=== PATIENT | male | born 1955 | race Caucasian/White ===

== ENCOUNTER 2016-12-09 19:56 | Emergency (ER) | payer SELFPAY ==
[~2016-12-09] VITALS: Ht 172.7 cm; Wt 71.8 kg
[2016-12-09 20:33] LABS: HEMATOCRIT 39.2 % (39.0-50.0); HEMOGLOBIN 13.8 g/dl (14.0-18.0); IMMATURE GRANULOCYTES 0.4 % (0.0-1.0); MEAN CELL VOLUME 96.6 fL CALC (80.0-100.0); MEAN CORPUSCULAR HGB CONC 35.2 g/L CALC (32.0-36.0); NEUT# 2.47 thou/uL (1.82-7.42); RED BLOOD COUNT 4.06 mill/uL (4.70-6.10); RED CELL DISTRI WIDTH 11.8 % (11.5-15.5)
[2016-12-09 20:41] LABS: ALBUMIN 4.8 g/dL (3.2-5.0); ALKALINE PHOSPHATASE 90 u/l (38-126); ANION GAP 20 (6-22 (CALC)); BILIRUBIN, TOTAL 0.5 mg/dL (0.0-1.4); BUN 4 mg/dL (8-23); BUN/CREATININE RATIO 6 (12-20 (CALC)); CALCIUM 9.5 mg/dL (8.4-10.2); CARBON DIOXIDE 24 mmol/l (22-30); CHLORIDE 101 mmol/l (95-108); CREATININE 0.6 mg/dL (0.7-1.3); GFR > 60 ML/MIN (>=60 (CALC)); GFR FOR AFR.AMER. > 60 ML/MIN (>=60 (CALC)); GLUCOSE 93 mg/dL (82-115); POTASSIUM 4.6 mmol/l (3.5-5.1); SGOT/AST 225 u/l (19-48); SGPT/ALT 140 u/l (11-66); SODIUM 141 mmol/l (137-146); TOTAL PROTEIN 7.7 g/dL (6.3-8.2)
[2016-12-09 20:51] LABS: ETHYL ALCOHOL 396 mg/dl (0-30)
[2016-12-09 21:20] LABS: URINE BILIRUBIN - DIPSTICK NEGATIVE (NEGATIVE); URINE BLOOD DIPSTICK TRACE-LYSED (NEGATIVE); URINE CLARITY CLEAR; URINE COLOR YELLOW; URINE GLUCOSE - DIPSTICK NEGATIVE (NEGATIVE); URINE KETONE NEGATIVE (NEGATIVE); URINE LEUK ESTERASE NEGATIVE (NEGATIVE); URINE NITRITE - DIPSTICK NEGATIVE (Negative); URINE PH 5.5 (4.5-8.0); URINE PROTEIN - DIPSTICK NEGATIVE (NEG-TRACE); URINE SPECIFIC GRAVITY <=1.005; URINE UROBILINOGEN - DIPSTICK 0.2 E.U./dL (0.2)
[2016-12-09 21:24] LABS: BARBITURATES NEGATIVE (NEGATIVE); COCAINE NEGATIVE (NEGATIVE); METHADONE NEGATIVE (NEGATIVE); OXCYCODONE NEGATIVE (NEGATIVE); TETRAHYDROCANNABIONOL NEGATIVE (NEGATIVE); TRICYLIC ANTIDEPRESSANTS NEGATIVE (NEGATIVE)
[2016-12-10 00:56] VITALS: BP 105/64
[2016-12-11] MEDS ORDERED: LIBRIUM25 M1 PO (11:26)
== END 2016-12-10 00:58 | DRG 897 ==
LOC: ED 19:56
PROVIDERS: Emergency Medicine
DX: F10.129 Alcohol abuse with intoxication, unspecified (principal)

== ENCOUNTER 2016-12-10 13:33 | Observation (INO) | payer SELFPAY ==
[~2016-12-10] VITALS: Ht 172.7 cm; Wt 63.0 kg
--- NOTE | 2016-12-10 13:41 | NUR ---
PATIENT TO ROOM VIA EMS
--- NOTE | 2016-12-10 13:59 | NUR ---
PT SEEN SHAKY, PROVIDED ATIVAN ORDERED. PT IS HESITANT TO ANSWER, BUT IS ALERT AND ORIENTED X 3. NO FURTHER SEIZURE ACTIVITY NOTED.
[2016-12-10 14:08] LABS: HEMATOCRIT 36.4 % (39.0-50.0); HEMOGLOBIN 12.7 g/dl (14.0-18.0); IMMATURE GRANULOCYTES 0.8 % (0.0-1.0); MEAN CELL VOLUME 98.4 fL CALC (80.0-100.0); MEAN CORPUSCULAR HGB 34.3 pG CALC (26.0-32.0); MEAN CORPUSCULAR HGB CONC 34.9 g/L CALC (32.0-36.0); NEUT# 6.19 thou/uL (1.82-7.42); RED BLOOD COUNT 3.7 mill/uL (4.70-6.10); RED CELL DISTRI WIDTH 11.7 % (11.5-15.5)
[2016-12-10 14:21] LABS: ALBUMIN 4.7 g/dL (3.2-5.0); ALKALINE PHOSPHATASE 89 u/l (38-126); ANION GAP 25 (6-22 (CALC)); BILIRUBIN, TOTAL 0.8 mg/dL (0.0-1.4); BUN 5 mg/dL (8-23); BUN/CREATININE RATIO 7 (12-20 (CALC)); CALCIUM 9.3 mg/dL (8.4-10.2); CARBON DIOXIDE 16 mmol/l (22-30); CHLORIDE 100 mmol/l (95-108); CREATININE 0.7 mg/dL (0.7-1.3); ETHYL ALCOHOL 0 mg/dl (0-30); GFR > 60 ML/MIN (>=60 (CALC)); GFR FOR AFR.AMER. > 60 ML/MIN (>=60 (CALC)); GLUCOSE 117 mg/dL (82-115); SGOT/AST 166 u/l (19-48); SGPT/ALT 115 u/l (11-66); SODIUM 137 mmol/l (137-146); TOTAL PROTEIN 7.4 g/dL (6.3-8.2)
[2016-12-10 14:34] LABS: BARBITURATES NEGATIVE (NEGATIVE); COCAINE NEGATIVE (NEGATIVE); METHADONE NEGATIVE (NEGATIVE); OXCYCODONE NEGATIVE (NEGATIVE); TETRAHYDROCANNABIONOL NEGATIVE (NEGATIVE); TRICYLIC ANTIDEPRESSANTS NEGATIVE (NEGATIVE); URINE BILIRUBIN - DIPSTICK NEGATIVE (NEGATIVE); URINE BLOOD DIPSTICK MODERATE (NEGATIVE); URINE CLARITY CLEAR; URINE COLOR YELLOW; URINE GLUCOSE - DIPSTICK NEGATIVE (NEGATIVE); URINE KETONE 15 mg/dL (NEGATIVE); URINE LEUK ESTERASE NEGATIVE (NEGATIVE); URINE NITRITE - DIPSTICK NEGATIVE (Negative); URINE PH 5.5 (4.5-8.0); URINE PROTEIN - DIPSTICK 100 mg/dL (NEG-TRACE); URINE SPECIFIC GRAVITY >=1.030; URINE UROBILINOGEN - DIPSTICK 0.2 E.U./dL (0.2)
[2016-12-10 14:39] LABS: MYOGLOBIN 539 ng/mL (0 - 121)
[2016-12-10 14:47] LABS: URINE BACTERIA RARE hpf; URINE HYALINE CAST FEW lpf (NONE-RARE); URINE MUCUS FEW hpf (NONE-FEW); URINE SQUAMOUS EPITHELIAL CELL FEW EPI/hpf (0-FEW); URINE WBC 0-2 WBC/hpf (0-5)
--- NOTE | 2016-12-10 16:42 | NUR ---
PT AWARE OF PENDING ADMISSION, MOTHER HAS BEEN IN AND OUT OF ROOM DURING THE AFTERNOON.
--- NOTE | 2016-12-10 18:31 | NUR ---
PT PROVIDED MEAL TRAY, IS AWARE OF PENDING ADMISSION. BANANA BAG NOW RUNNING, PT PROVIDED WITH TYLENOL 650 MG FOR 99.7 FEVER AND ALSO LIBRIUM 25 MG FOR SHAKINESS.
--- NOTE | 2016-12-10 19:17 | NUR ---
TRIED TO CALL REPORT BUT NURSE IS BUSY AND WILL CALL BACK. PT IS ALERT AND ORIENTED. DENIES HALLUCINATIONS/HEADACHE. ONLY C/O TREMORS...FINE AT PRESENT
--- NOTE | 2016-12-10 19:24 | NUR ---
REPORT TO JUNIOR. MOTHER AT BEDSIDE
[2016-12-10 19:35] VITALS: BP 146/81
--- NOTE | 2016-12-10 19:35 | NUR ---
RECEIVED FROM ER VIA STRETCHER ACCOMPANIED BY ER NURSE. OUT OF STRETCHER TO BED WITH UNSTEADY GAIT. A/O X3, DENIES PAIN OR DISCOMFORT. BANANA BAG INFUSING TO LFA WITH NO COMPLICATIONS. BED ALARM IN PLACE, RAILS PADED. PO FLUIDS IN REACH. WILL CONTINUE TO MONITOR.
--- NOTE | 2016-12-10 19:35 | NUR ---
TO FLOOR WITHOUT INCIDENT.
--- NOTE | 2016-12-10 21:56 | NUR ---
RESTING ON RIGHT SIDE WITH EYES CLOSED, RESPIRATIONS EVEN AND UNLABORED.
--- NOTE | 2016-12-11 | NUR ---
MEDICATED WITH LIBRUIUM AT THIS TIME. TREMORS NOTICED TO HANDS. IV FLUIDS INFUSING TO LFA WITH NO PROBLEMS. VOICES NO CONERNS.
[2016-12-11 00:20] VITALS: BP 140/88
[2016-12-11 04:00] VITALS: BP 136/80
--- NOTE | 2016-12-11 04:44 | NUR ---
MVI BAG COMPLETE, IV HEPLOCKED. OOB TO BATHROOM WITH STEADIER GAIT THAN ON ADMITION. ENCOURAGED TO USE CALL LIGHT FOR ASSISTANCE TO BATHROOM. PO FLUIDS IN REACH.
--- NOTE | 2016-12-11 07:00 | NUR ---
REPORT RECIEVED FROM KAREN PACHECO; PT SITTING UP IN CHAIR FROM SHOWER; ALIX PAYAN AT BEDSIDE TO APPLY TELE; PT DENIES ANY NEEDS AT THIS TIME; PT ENCOURAGED TO CALL FOR ANY NEEDS; CALL LIGHT WITHIN REACH; WILL CONTINUE TO MONITOR
[2016-12-11 09:21] VITALS: BP 150/80
--- NOTE | 2016-12-11 10:06 | NUR ---
REPORT RECEIVED FROM AG LYON. PT SITTING UPRIGHT IN BED. DENIES PAIN. STATES ANTICIPATION OF DISCHARGE. DISCHARGE PROCESS DISCUSSED. CALL LIGHT REVIEWED AND IN REACH. PT STATES UNDERSTANDING.
[2016-12-11 11:20] VITALS: BP 137/82
[2016-12-11] MEDS ORDERED: LIBRIUM25 M1 PO (11:26)
--- NOTE | 2016-12-11 11:45 | NUR ---
Discharge instructions given. Patient verbalizes understanding of same. Discharged in stable condition via Wheelchair to Home with family. All belongings sent with pt.
== END 2016-12-11 12:22 | disposition home or self-care (01) | DRG 897 ==
LOC: ENPENDDIS → ED 13:33 → ED-I 17:48 → ED 17:49 → MS2 17:50
PROVIDERS: Emergency Medicine; ADMIT Internal Medicine; ATTEND Internal Medicine
DX: F10.239 Alcohol dependence with withdrawal, unspecified (principal); R56.9 Unspecified convulsions; F17.210 Nicotine dependence, cigarettes, uncomplicated
CPT/HCPCS: G0378; J1650; J2060

== ENCOUNTER 2018-04-09 08:16 | Emergency (ER) | payer SELFPAY ==
[~2018-04-09] VITALS: Ht 172.7 cm; Wt 80.0 kg
[~2018-04-09 08:16] MED LIST: LIBRIUM25 M1 PO
[2018-04-09 08:34] VITALS: BP 173/94
[2018-04-09] MEDS ORDERED: CIPROFLOXACN500 MG PO (09:03)
[2018-04-09] MEDS ORDERED: CORTISPORIN OTI10 M2 AU (09:03)
[2018-04-09] MEDS ORDERED: ATIVAN1 MG PO (09:03)
== END 2018-04-09 09:20 | disposition home or self-care (01) | DRG 951 ==
LOC: ED 08:16
DX: Z00.8 Encounter for other general examination (principal); H66.92 Otitis media, unspecified, left ear; F17.200 Nicotine dependence, unspecified, uncomplicated

== ENCOUNTER 2018-10-25 12:43 | Inpatient (IN) | payer SELFPAY ==
[~2018-10-25] VITALS: Ht 172.7 cm; Wt 71.7 kg
[~2018-10-25 12:43] MED LIST changes: +ATIVAN1 MG PO; +CIPROFLOXACN500 MG PO; +CORTISPORIN OTI10 M2 AU
--- NOTE | 2018-10-25 12:59 | NUR ---
TO TX ROOM WITH STEADY GAIT
--- NOTE | 2018-10-25 13:00 | NUR ---
PT HAS 3 COMPLAINTS. ABD PAIN X 2 WEEKS, FALL 4 DAYS AGO AND FAST HEART RATE TODAY
[2018-10-25 13:30] LABS: HEMATOCRIT 38.8 % (39.0-50.0); HEMOGLOBIN 13.6 g/dl (14.0-18.0); IMMATURE GRANULOCYTES 0.5 % (0.0-5.0); MEAN CELL VOLUME 93.9 fL CALC (80.0-100.0); MEAN CORPUSCULAR HGB 32.9 pG CALC (26.0-32.0); MEAN CORPUSCULAR HGB CONC 35.1 g/L CALC (32.0-36.0); NEUT# 7.66 thou/uL (1.82-7.42); RED BLOOD COUNT 4.13 mill/uL (4.70-6.10)
--- NOTE | 2018-10-25 13:30 | NUR ---
PT DENIES ANY NEEDS AT THIS TIME AND REPORTS DR CHONG SENT HIM OVER FOR TESTS. PT DENIES ANY COMPLAINTS. PT SKIN IS YELLOW IN COLOR, ABD FIRM AND DISTENDED. PT HAS HEALING ABRASION TO RIGHT FOREARM. VSS. PT ASKS ABOUT HOW LONG THIS IS GOING TO TAKE. PT INFOMRED THAT THE INFUSION THAT WAS ORDERED RUNS OVER 2 HOURS. PT A&O X 3 BUT SEEMS CONFUSED. PT'S MOTHER AT BEDSIDE.
[2018-10-25 13:44] LABS: BUN 8 mg/dL (8-23); BUN/CREATININE RATIO 15 (12-20 (CALC)); CREATININE 0.6 mg/dL (0.7-1.3); GFR > 60 ML/MIN (>=60 (CALC)); GFR FOR AFR.AMER. > 60 ML/MIN (>=60 (CALC)); LIPASE 152 u/l (23-300); POTASSIUM 4.4 mmol/l (3.5-5.1); SGOT/AST 100 u/l (19-48); TOTAL PROTEIN 6.8 g/dL (6.3-8.2)
[2018-10-25 13:48] LABS: ALBUMIN 3.1 g/dL (3.2-5.0); ALKALINE PHOSPHATASE 158 u/l (38-126); ANION GAP 14 (6-22 (CALC)); BILIRUBIN, TOTAL 2.1 mg/dL (0.0-1.4); CARBON DIOXIDE 24 mmol/l (22-30); CHLORIDE 86 mmol/l (95-108); SODIUM 120 mmol/l (137-146)
[2018-10-25 13:49] LABS: AMYLASE < 30 u/l (30-110)
--- NOTE | 2018-10-25 13:57 | NUR ---
IV FLUIDS INITIATED. PT KEEP ASKING HOW LONG THIS INFUSION WILL TAKE. PT AGAIN UPDATED ON PLAN OF CARE AND WAIT TIME.
[2018-10-25 14:37] LABS: URINE BILIRUBIN - DIPSTICK NEGATIVE (NEGATIVE); URINE BLOOD DIPSTICK NEGATIVE (NEGATIVE); URINE COLOR YELLOW; URINE GLUCOSE - DIPSTICK 100 mg/dL (NEGATIVE); URINE KETONE TRACE mg/dL (NEGATIVE); URINE LEUK ESTERASE NEGATIVE (NEGATIVE); URINE NITRITE - DIPSTICK NEGATIVE (Negative); URINE PH 5.5 (4.5-8.0); URINE PROTEIN - DIPSTICK NEGATIVE (NEG-TRACE); URINE UROBILINOGEN - DIPSTICK >=8.0 E.U./dL (0.2)
--- NOTE | 2018-10-25 14:55 | NUR ---
IV FLUIDS INFUSING THROUGH IV SITE WITH NO DIFFICULTY. PT DENIES ANY PAIN OR NEEDS AT THIS TIME. VSS. PT AWARE OF PENDING RESULTS AND WAIT TIME.
--- NOTE | 2018-10-25 15:30 | NUR ---
PT RESTING IN STRETCHER IN NAD. VSS. PT DENIES ANY NEEDS. PT REMAINS A&O X 3 WITH MINIMAL CONFUSION. PT UPDATED ON PLAN OF CARE AND WAIT TIME. CALL GREGORY WITHIN REACH.
--- NOTE | 2018-10-25 16:40 | NUR ---
EDP AT BEDSIDE TO DISCUSS CLINICAL FINDINGS WITH PT
--- NOTE | 2018-10-25 17:40 | NUR ---
Pt report called to KAREN Gaspar.
--- NOTE | 2018-10-25 17:45 | NUR ---
CALL PLACED TO DR FIGUEROA. VERBAL ORDERS GIVEN FOR ADMISSION.
--- NOTE | 2018-10-25 18:15 | NUR ---
Admission Note Report Given to: sbar printed to floor Transported by: Wheelchair x Stretcher Transported with: x Nurse Transporter x Patent IV O2 x Glass Beveller
[2018-10-25 18:18] VITALS: BP 129/72
--- NOTE | 2018-10-25 18:20 | NUR ---
PT TRANSPORTED TO [facility] VIA STRETCHER ACCOMPIANED BY AG NICOLE. PT A/O X3. SEEMS TO HAVE SLIGHT CONFUSION AT TIMES. RESP SHALLOW. LUNG SOUNDS CLEAR. NONPRODUCTIVE COUGH NOTED. TELE IN PLACE. BOWEL SOUNDS ACTIVE X4. STRONG RADIAL AND PEDAL PULSES. #20 LAC SL. FLUSHED AND PATENT. SITE APPEARS HEALTHY. PT HAS SMALL SKIN TEAR TO MID CHEST AND ABRASION TO RFA FROM PREVIOUS FALL. PT DENIES ANY PAIN OR NEEDS. POC DISCUSSED. SAFETY PRECAUTIONS IN PLACE. CALL LIGHT IN REACH. WILL CONTINUE TO MONITOR.
--- NOTE | 2018-10-25 21:50 | NUR ---
PT IS SLEEPING, NO S/O DISTRESS NOTED, AWOKE TO MY VOICE. SLIGHTLY CONFUSED UPON FIRST WAKING UP, BUT WAS QUICKLY ORIENTED TO SELF,CIRCUMSTANCE AND LOCATION.
[2018-10-25 23:00] LABS: ANION GAP 11 (6-22 (CALC)); BUN 7 mg/dL (8-23); BUN/CREATININE RATIO 13 (12-20 (CALC)); CARBON DIOXIDE 26 mmol/l (22-30); CHLORIDE 95 mmol/l (95-108); CREATININE 0.6 mg/dL (0.7-1.3); GFR > 60 ML/MIN (>=60 (CALC)); GFR FOR AFR.AMER. > 60 ML/MIN (>=60 (CALC)); SODIUM 128 mmol/l (137-146)
--- NOTE | 2018-10-25 23:35 | NUR ---
PT ASSESSSED, LOC TO SELF, LOCATION AND CIRCUMSTANCES. NO S/O AGITATION AT THIS TIME. DENIES VISUAL OR AUDITORY DISTURBANCES, NO S/O TRIMMERS. WILL CONTINUE TO MONITOR.
[2018-10-26] VITALS (7 sets, daily range): BP systolic 91–115; BP diastolic 58–73
--- NOTE | 2018-10-26 01:28 | NUR ---
PT UP TO THE RESTROOM, PT WAS REMINDED TO CALL FOR ASSISTANCE IF HE NEEDS TO GET UP. PT AGREED TO CALL FOR ASSISTANCE WHEN NEEDING TO AMBULATE. URINAL AT BEDSIDE. NO S/O DISTRESS NOTED.
--- NOTE | 2018-10-26 03:15 | NUR ---
PT IS SLEEPING AT THIS TIME. NO S/O DISTRESS NOTED. BED ALARM ON.
[2018-10-26 05:10] LABS: HEMOGLOBIN 12.5 g/dl (14.0-18.0); MEAN CELL VOLUME 95.5 fL CALC (80.0-100.0); MEAN CORPUSCULAR HGB 33.2 pG CALC (26.0-32.0); MEAN CORPUSCULAR HGB CONC 34.7 g/L CALC (32.0-36.0); RED BLOOD COUNT 3.77 mill/uL (4.70-6.10); RED CELL DISTRI WIDTH 12.2 % (11.5-15.5)
[2018-10-26 05:24] LABS: INTERNATIONAL NORMALIZED RATIO 1.3 RATIO (0.7-1.3); PROTHROMBIN TIME 13.1 SECONDS (9.0-12.5)
[2018-10-26 05:34] LABS: ANION GAP 11 (6-22 (CALC)); BUN 8 mg/dL (8-23); BUN/CREATININE RATIO 14 (12-20 (CALC)); CALCULATED LDLCHOLESTEROL 37 mg/dL (62-129 (CALC)); CARBON DIOXIDE 26 mmol/l (22-30); CHLORIDE 97 mmol/l (95-108); CHOLESTEROL HDL RATIO 2.9 (<4.4 (CALC)); CREATININE 0.5 mg/dL (0.7-1.3); GFR > 60 ML/MIN (>=60 (CALC)); GFR FOR AFR.AMER. > 60 ML/MIN (>=60 (CALC)); HDL CHOLESTEROL 24 mg/dL (>=40); MAGNESIUM 1.7 mg/dL (1.6-2.3); POTASSIUM 3.8 mmol/l (3.5-5.1); SODIUM 129 mmol/l (137-146); TOTAL CHOLESTEROL 70 mg/dl (0-199); TOTAL TRIGLYCERIDES 45 mg/dl (30-149); VLDL CHOLESTROL 9 mg/dl (4-45 (CALC))
--- NOTE | 2018-10-26 08:42 | NUR ---
PT RESTING IN BED, NO SIGNS OF DISTRESS NOTED, RESP EVEN AND UNLABORED. PT ALERT AND ORIENTED X3, DISCUSSED POC, PT ANXIOUS STATES HE DRINKS 8 BEERS A DAY. CALL LIGHT IN REACH,CONTINUE TO MONITOR.
--- NOTE | 2018-10-26 09:50 | NUR ---
DISCUSSED M.V.I INFUSION WITH PT, PT IN AGREEMENT. NO SIGNS OF DISTRESS NOTED, RESP EVEN AND UNLABORED. CALL LIGHT IN REACH,CONTINUE TO MONITOR.
--- NOTE | 2018-10-26 12:22 | NUR ---
PT RETURNING TO BED, VERY AGITATED, INFORMED BY ED PT HR IN THE 130'S SPEECH CORRECTION CONSULTANT AWARE. MOTHER AT BEDSIDE, PT UPSET AT MOTHER AND MOTHER SAID SHE WAS LEAVING. DISCUSSED ATIVAN WITH PT, HE IS IN AGREEMENT. IV SITE INFILTRATED, NEW IV SITE PLACED TO RAC. PT TOLERATED WELL. IV SITE TO LAC REMOVED, CATHETER INTACT. CALL LIGHT IN REACH,CONTINUE TO MONITOR.
--- NOTE | 2018-10-26 14:15 | NUR ---
PT RESTING IN BED WITH EYES CLOSED, NO SIGNS OF DISTRESS NOTED, RESP EVEN AND UNLABORED. CALL LIGHT IN REACH,CONTINUE TO MONITOR.
--- NOTE | 2018-10-26 15:30 | NUR ---
PT PLACED ON SEIZURE PRECAUTIONS, PT VERBALIZED UNDERSTANDING. IS AT BEDSIDE, ENCOURAGED ITS USE. CALL LIGHT IN REACH,CONTINUE TO MONITOR.
--- NOTE | 2018-10-26 18:28 | NUR ---
PT AMBULATING HALLWAY, NO SIGNS OF DISTRESS NOTED,CONTINUE TO MONITOR.
--- NOTE | 2018-10-26 19:40 | NUR ---
PT IS IN BED ASKING WHEN CAN HIS FLUIDS BE DC'D, WHEN DOES HE GET BLOOD DRAWN AGAIN, WHEN CAN THE HEART MONITOR BE REMOVED, POC DISCUSSED TO THE BEST OF MY ABILITY AT THIS TIME. I EXPLAINED TO PT THAT I HAD JUST RECEIVED REPORT FROM THE DAY NURSE AND THAT I WILL REVIEW POC, MED SCHEDULE, FLUIDS, ETC.BE GLAD TO DISCUSS POC AND ATTEMPT TO ANSWER ALL OF HIS QUESTIONS WHEN I HAVE SEEN ALL OF MY PTS AND HAVE A CHANCE TO REVIEW ITEMS QUESTIONED. PT CONTINUED TO ASK 4 MORE TIMES I WAS IN THE ROOM. PT'S MOTHER IS AT BEDSIDE AND PT APPEARS VERY AGITATED W/HER. PT C/O BED RAILS BEING WRAPPED FOR SEIZURE PRECAUTIONS STATING "I HAVE BEEN A DRINKER FOR YEARS AND HAVE NEVER HAD A SEIZURE. MOTHER IS VERY HOVERING AND ATTEMPTING TO HELP PT, BUT APPEARS TO ONLY BE AGITATING PT. NICKER AND BREAKER OFFERED MEDICATION TO ASSIST PT IN RELAXING/REFUSED STATING HE DOESN'T NEED IT. WAS STILL ATTEMPTING TO MAKE ROUNDS
--- NOTE | 2018-10-26 19:50 | NUR ---
RETURNED W/LAB INFORMATION, DC'D PT FLUIDS ORDERS ALLOW, POC DISCUSSED INDEPTH W/PT. PT'S MOTHER IS NO LONGER AT BEDSIDE. PT APOLOGIZED FOR BEING DIFFICULT EARLIER STATING "MY MOTHER ASKS TOO MANY QUESTIONS THAT I DON'T WANT TO ANSWER AND THAT IRRITATES ME." BAND DIRECTOR REASSURED PT THAT IT WAS NOT A PROBLEM AND BAND DIRECTOR COMPLETELY UNDERSTOOD. PT APPEARS MUCH MORE RELAXED AT THIS TIME. PT ASSESSED, DENIES ANY AUDITORY OR VISUAL DISTURBANCES. NO NOTED TREMORS, MILD AGITATION STILL, BUT REFUSING MEDICATION AT THIS TIME. WILL CONTINUE TO MONITOR FOR NEED. CALL LIGHT IS NEXT TO PT AND PT ENCOURAGED TO CALL NEEDS ARISE.
--- NOTE | 2018-10-27 01:32 | NUR ---
PT IS SLEEPING SOUNDLY NO S/O AGITATION OR DISTRESS NOTED, NO S/O TREMORS AT THIS TIME. SEIZURE PRECAUTIONS IN PLACE.
[2018-10-27 04:24] VITALS: BP 112/73
--- NOTE | 2018-10-27 04:34 | NUR ---
PT UP TO STANDING SCALE FOR DAILY WEIGHT AND BACK TO BED. WOUND TO RIGHT FOREARM CLEANED W/NS, COVERED W/TELFA AND WRAPPED W/KURLEX AND MESH SOCK COVERING PER PT REQUEST. PT DENIES ANY OTHER NEEDS AT THIS TIME.
[2018-10-27 05:31] LABS: HEMATOCRIT 35.7 % (39.0-50.0); HEMOGLOBIN 12.3 g/dl (14.0-18.0); IMMATURE GRANULOCYTES 0.4 % (0.0-5.0); MEAN CELL VOLUME 97.3 fL CALC (80.0-100.0); MEAN CORPUSCULAR HGB 33.5 pG CALC (26.0-32.0); MEAN CORPUSCULAR HGB CONC 34.5 g/L CALC (32.0-36.0); NEUT# 5.3 thou/uL (1.82-7.42); RED BLOOD COUNT 3.67 mill/uL (4.70-6.10); RED CELL DISTRI WIDTH 12.3 % (11.5-15.5)
[2018-10-27 05:55] LABS: ALBUMIN 2.5 g/dL (3.2-5.0); ALKALINE PHOSPHATASE 136 u/l (38-126); ANION GAP 10 (6-22 (CALC)); BILIRUBIN, TOTAL 1.3 mg/dL (0.0-1.4); BUN 10 mg/dL (8-23); BUN/CREATININE RATIO 20 (12-20 (CALC)); CARBON DIOXIDE 24 mmol/l (22-30); CHLORIDE 101 mmol/l (95-108); CREATININE 0.5 mg/dL (0.7-1.3); GFR > 60 ML/MIN (>=60 (CALC)); GFR FOR AFR.AMER. > 60 ML/MIN (>=60 (CALC)); POTASSIUM 3.6 mmol/l (3.5-5.1); SGOT/AST 72 u/l (19-48); SODIUM 131 mmol/l (137-146); TOTAL PROTEIN 5.8 g/dL (6.3-8.2)
--- NOTE | 2018-10-27 07:00 | NUR ---
RECIEVED REPORT FROM RN, ASSUMED PT CARE.
[2018-10-27 08:30] VITALS: BP 136/88
--- NOTE | 2018-10-27 08:30 | NUR ---
PT RESTING IN BED, REMAINS ST ON TELEMETRY PER ED. PT DENIES CHEST PAIN, SOB OR DISTRESS AT THIS TIME. 18G TO RAC/SL FLUSHES WITHOUT DIFFICULTY. 1500FR INTACT. DRSG TO RFA CDI, NO DRAINAGE OR ODOR. SEIZURE PRECAUTIONS INTACT. ABDOMEN REMAINS DISTENDED/FIRM/NON-TENDER. CALL LIGHT IN REACH. WILL MONITOR.
--- NOTE | 2018-10-27 09:00 | NUR ---
PT MEDICATED WITH ATIVAN, PRN PER PT REQUEST FOR INCREASED ANXIETY AND AGGITATION. WILL MONITOR. NO SEIZURE ACTIVITY NOTED.
[2018-10-27 11:05] VITALS: BP 116/75
--- NOTE | 2018-10-27 11:29 | NUR ---
PT NOTED TAKING ALL TELEMETRY OFF, PT FOUND WITH INC. OF BLADDER, PT PHONE ON FLOOR IN PIECES, WHEN ASKED WHAT HAPPENED TO PHONE, PT STATED "MY MOTHER JUST LEFT". WHEN ASKED FOR FURTHER EXPLAINATION, PT STATED HE SAW SOMEONE IN HIS BATHROOM AND WHILE HE WAS WAITING FOR THEM TO GET OUT HE WET THE BED AND SOILED HIS BATH ROBE.PT REORIENTED, NO ONE WAS IN ROOM WITH HIM. PT THEN STATED "NO i WAS DREAMING BUT IT WAS REAL". PT ASSISSTED INTO SHOWER, FULL SHOWER, COMPLETE LINEN CHANGE, SOILED LAUNDRY PLACED IN BELONGING BAG AND PHONE PIECES PLACES ON SHELF ABOVE TV AT PT REQUEST. AMIRA DELEON, MADE AWARE OF PT STATUS. NO SEIZURE ACTIVITY NOTED. PT A&0X3, CLOTH SPREADER SCREEN PRINTING AT SIDE, WILL MONITOR.
--- NOTE | 2018-10-27 12:15 | NUR ---
DR. FIGUEROA AT BEDSIDE FOR ASSESSMENT AND TO DISCUSS PLAN OF CARE.
--- NOTE | 2018-10-27 13:15 | NUR ---
IV site discontinued, cath intact. No edema , no redness, voices no discomfort. PT STATED HE PULLED THE TRIP WIRE.
--- NOTE | 2018-10-27 16:30 | NUR ---
PT RESTING IN BED WITH EYES CLOSED, RESPIRATIONS EVEN/UNLABORED. CALL LIGHT IN REACH. NO SEIZURE ACTIVITY NOTED AT THIS TIME. CALL LIGHT IN REACH. WILL MONITOR.
[2018-10-27 16:55] VITALS: BP 119/81
[2018-10-27 19:19] VITALS: BP 116/80
--- NOTE | 2018-10-27 20:10 | NUR ---
PT AMBULATING HALLWAY, FAMILY AT SIDE. PT APPEARS MILDLY ANXIOUS, NO APPARENT TREMORS.
[2018-10-27 23:04] VITALS: BP 106/63
--- NOTE | 2018-10-27 23:25 | NUR ---
PT MEDICATED W/ LIBRIUM. PT LOC TO SELF AND CIRCUMSTANCE. NO TREMORS AT THIS TIME VISUAL OR TO TOUCH, BUT PT REPORTS FEELING LIKE HE IS HAVING "WEIRD DREAMS." IT IS DIFFICULT TO GET A STRAIGHT ANSWER FROM THE PT. THOUGHTS APPEAR TO BE SPIRATIC AT TIMES. PT DID ASK ABOUT HIS NA+ LEVELS AND OTHER LABS AND DISCUSS POC W/APPROPRIATE QUESTIONS. WILL CONTINUE TO MONITOR. NO S/O AGITATED NOTED AT THIS TIME EITHER.
[2018-10-28 04:15] VITALS: BP 119/77
[2018-10-28 05:34] LABS: HEMATOCRIT 34.1 % (39.0-50.0); HEMOGLOBIN 11.6 g/dl (14.0-18.0); IMMATURE GRANULOCYTES 0.6 % (0.0-5.0); MEAN CELL VOLUME 97.2 fL CALC (80.0-100.0); NEUT# 5.16 thou/uL (1.82-7.42); RED BLOOD COUNT 3.51 mill/uL (4.70-6.10); RED CELL DISTRI WIDTH 12.4 % (11.5-15.5)
[2018-10-28 06:01] LABS: ALBUMIN 2.2 g/dL (3.2-5.0); ALKALINE PHOSPHATASE 104 u/l (38-126); ANION GAP 7 (6-22 (CALC)); BILIRUBIN, TOTAL 1.1 mg/dL (0.0-1.4); BUN 9 mg/dL (8-23); BUN/CREATININE RATIO 17 (12-20 (CALC)); CARBON DIOXIDE 26 mmol/l (22-30); CHLORIDE 102 mmol/l (95-108); CREATININE 0.5 mg/dL (0.7-1.3); GFR > 60 ML/MIN (>=60 (CALC)); GFR FOR AFR.AMER. > 60 ML/MIN (>=60 (CALC)); POTASSIUM 3.3 mmol/l (3.5-5.1); SGOT/AST 54 u/l (19-48); SODIUM 132 mmol/l (137-146); TOTAL PROTEIN 5.2 g/dL (6.3-8.2)
[2018-10-28 07:39] VITALS: BP 119/74
--- NOTE | 2018-10-28 07:46 | NUR ---
PT SITTING UP IN BED WATCHING TV; ASSESSMENT COMPLETED; A/O X2; RESP EVEN AND UNLABORED; TELE IN PLACE; IV FLUSHED WELL, SITE APPEARS HEALTHY; NOW EATING BREAFAST, REFUSING TO SIT UP, SAYS HE'S FINE AND DOES NOT LIKE TO TAKE ORDERS FROM ANYONE. BED RAILS PADDED FOR SEIZURES PRECAUTION; DRSG TO RFA CDI; CALL GREGORY IN REACH; SAFETY PRECAUTION REINFORCE;
[2018-10-28 09:51] VITALS: BP 128/83
[2018-10-28 11:14] VITALS: BP 114/78
[2018-10-28 15:20] VITALS: BP 118/79
--- NOTE | 2018-10-28 16:45 | NUR ---
PT LAYING IN BED, IV REMOVED, CATH INTACT; SITE APPEARS HEALTHY; TELE REMOVED; D/C INSTRUCTIONS GIVEN TO PT, VERBALIZE UNDERSTANDING; FAMILY AT BEDSIDE, REQUESTING TO TALK TO DR FAROOQ (DONE)
--- NOTE | 2018-10-28 16:59 | NUR ---
Discharge instructions given. Patient verbalizes understanding of same. Discharged in stable condition via Wheelchair to Home with family. All belongings sent with pt.
== END 2018-10-28 16:50 | disposition home or self-care (01) | DRG 433 ==
LOC: ED 12:43 → ED-I 16:30 → ED 16:58 → MS2 16:59
PROVIDERS: Nurse Practitioner Family; ADMIT Internal Medicine; ATTEND Internal Medicine
DX: K70.31 Alcoholic cirrhosis of liver with ascites (principal); E87.1 Hypo-osmolality and hyponatremia; E46 Unspecified protein-calorie malnutrition; F10.239 Alcohol dependence with withdrawal, unspecified; K70.11 Alcoholic hepatitis with ascites; F17.210 Nicotine dependence, cigarettes, uncomplicated; R32 Unspecified urinary incontinence; Z68.24 Body mass index [BMI] 24.0-24.9, adult
CPT/HCPCS: J2060

== ENCOUNTER 2020-04-10 14:37 | Emergency (ER) | payer MEDICARE ==
[~2020-04-10] VITALS: Ht 172.7 cm; Wt 72.7 kg
[2020-04-10 15:51] LABS: IMMATURE GRANULOCYTES 0.3 % (0.0-5.0); MEAN CELL VOLUME 92.9 fL CALC (80.0-100.0); MEAN CORPUSCULAR HGB 31.8 pG CALC (26.0-32.0); MEAN CORPUSCULAR HGB CONC 34.2 g/dL CAL (32.0-36.0); NEUT# 3.49 thou/uL (1.82-7.42); RED BLOOD COUNT 4.09 mill/uL (4.70-6.10); RED CELL DISTRI WIDTH 12.9 % (11.5-15.5)
[2020-04-10 16:04] LABS: ALBUMIN 3.5 g/dL (3.2-5.0); ALKALINE PHOSPHATASE 117 u/l (38-126); ANION GAP 14 (6-22 (CALC)); CARBON DIOXIDE 23 mmol/l (22-30); CHLORIDE 101 mmol/l (95-108); CREATININE 0.6 mg/dL (0.7-1.3); GFR > 60 ML/MIN (>=60 (CALC)); GFR FOR AFR.AMER. > 60 ML/MIN (>=60 (CALC)); POTASSIUM 4.3 mmol/l (3.5-5.1); SODIUM 134 mmol/l (137-146); TOTAL PROTEIN 7.5 g/dL (6.3-8.2)
[2020-04-10 16:05] LABS: SGOT/AST 144 u/l (19-48)
[2020-04-10 16:06] LABS: BUN 2 mg/dL (8-23); BUN/CREATININE RATIO 3 (12-20 (CALC))
[2020-04-10 16:28] LABS: URINE BILIRUBIN - DIPSTICK NEGATIVE (NEGATIVE); URINE BLOOD DIPSTICK NEGATIVE (NEGATIVE); URINE COLOR YELLOW; URINE GLUCOSE - DIPSTICK NEGATIVE (NEGATIVE); URINE KETONE NEGATIVE (NEGATIVE); URINE LEUK ESTERASE NEGATIVE (NEGATIVE); URINE NITRITE - DIPSTICK NEGATIVE (Negative); URINE PROTEIN - DIPSTICK NEGATIVE (NEG-TRACE); URINE UROBILINOGEN - DIPSTICK 0.2 E.U./dL (0.2)
[2020-04-11 07:20] VITALS: BP 136/75
== END 2020-04-11 07:14 | disposition home or self-care (01) ==
LOC: ED 14:37
PROVIDERS: Family Medicine
PROC: 0HQ1XZZ Repair Face Skin, External Approach (ICD-10-PCS; principal; 2020-04-10)
DX: S01.21XA Laceration without foreign body of nose, initial encounter (principal); S01.81XA Laceration without foreign body of other part of head, initial encounter; F10.129 Alcohol abuse with intoxication, unspecified; F17.200 Nicotine dependence, unspecified, uncomplicated; W18.30XA Fall on same level, unspecified, initial encounter; Y92.832 Beach as the place of occurrence of the external cause; Y90.8 Blood alcohol level of 240 mg/100 ml or more

== ENCOUNTER 2020-07-15 13:17 | Emergency (ER) | payer MEDICARE ==
[~2020-07-15] VITALS: Ht 172.7 cm; Wt 74.1 kg
[2020-07-15 14:26] LABS: URINE BLOOD DIPSTICK NEGATIVE (NEGATIVE); URINE GLUCOSE - DIPSTICK NEGATIVE (NEGATIVE); URINE KETONE TRACE mg/dL (NEGATIVE); URINE LEUK ESTERASE NEGATIVE (NEGATIVE); URINE NITRITE - DIPSTICK NEGATIVE (Negative); URINE PH 5.5 (4.5-8.0); URINE PROTEIN - DIPSTICK NEGATIVE (NEG-TRACE); URINE SPECIFIC GRAVITY >=1.030
[2020-07-15 14:29] LABS: URINE BILIRUBIN - DIPSTICK MODERATE (NEGATIVE); URINE COLOR AMBER
[2020-07-15 15:15] LABS: HEMATOCRIT 37.8 % (39.0-50.0); HEMOGLOBIN 12.7 g/dl (14.0-18.0); IMMATURE GRANULOCYTES 0.3 % (0.0-5.0); MEAN CELL VOLUME 96.7 fL CALC (80.0-100.0); MEAN CORPUSCULAR HGB 32.5 pG CALC (26.0-32.0); MEAN CORPUSCULAR HGB CONC 33.6 g/dL CAL (32.0-36.0); NEUT# 4.48 thou/uL (1.82-7.42); RED BLOOD COUNT 3.91 mill/uL (4.70-6.10); RED CELL DISTRI WIDTH 13.9 % (11.5-15.5)
[2020-07-15 15:26] LABS: ALBUMIN 3.1 g/dL (3.2-5.0); ALKALINE PHOSPHATASE 121 u/l (38-126); ANION GAP 11 (6-22 (CALC)); BUN 2 mg/dL (8-23); BUN/CREATININE RATIO 5 (12-20 (CALC)); CARBON DIOXIDE 23 mmol/l (22-30); CHLORIDE 98 mmol/l (95-108); CREATININE 0.5 mg/dL (0.7-1.3); GFR > 60 ML/MIN (>=60 (CALC)); GFR FOR AFR.AMER. > 60 ML/MIN (>=60 (CALC)); LIPASE 106 u/l (23-300); POTASSIUM 3.8 mmol/l (3.5-5.1); SGOT/AST 65 u/l (19-48); SODIUM 129 mmol/l (137-146); TOTAL PROTEIN 8.2 g/dL (6.3-8.2)
[2020-07-15 15:29] LABS: BILIRUBIN, TOTAL 2.4 mg/dL (0.0-1.4)
[2020-07-15 15:30] LABS: INTERNATIONAL NORMALIZED RATIO 1.7 RATIO (0.7-1.3); PROTHROMBIN TIME 16.6 SECONDS (9.0-12.5)
[2020-07-15 18:00] VITALS: BP 114/73
== END 2020-07-15 18:01 | disposition home or self-care (01) ==
LOC: ED 13:17
PROVIDERS: Family Medicine
DX: R18.8 Other ascites (principal); F17.200 Nicotine dependence, unspecified, uncomplicated; K76.89 Other specified diseases of liver; R06.02 Shortness of breath
CPT/HCPCS: Q9967

== ENCOUNTER 2020-07-16 11:12 | Emergency (ER) | payer MEDICARE ==
[~2020-07-16] VITALS: Ht 172.7 cm; Wt 100.0 kg
[2020-07-16 16:35] VITALS: BP 102/63
== END 2020-07-16 16:35 | disposition home or self-care (01) ==
LOC: ED 11:12
PROC: 0W9G3ZZ Drainage of Peritoneal Cavity, Percutaneous Approach (ICD-10-PCS; principal; 2020-07-16)
PROC: BW40ZZZ Ultrasonography of Abdomen (ICD-10-PCS; 2020-07-16)
DX: K74.60 Unspecified cirrhosis of liver (principal); R18.8 Other ascites; F17.200 Nicotine dependence, unspecified, uncomplicated
CPT/HCPCS: P9047

== ENCOUNTER 2020-08-12 13:43 | Emergency (ER) | payer MEDICARE ==
[~2020-08-12] VITALS: Ht 172.7 cm; Wt 74.5 kg
[2020-08-12] MEDS ORDERED: WATER PILL (14:37)
[2020-08-12 15:18] LABS: HEMATOCRIT 35.4 % (39.0-50.0); HEMOGLOBIN 11.7 g/dl (14.0-18.0); IMMATURE GRANULOCYTES 0.3 % (0.0-5.0); MEAN CELL VOLUME 93.2 fL CALC (80.0-100.0); MEAN CORPUSCULAR HGB 30.8 pG CALC (26.0-32.0); MEAN CORPUSCULAR HGB CONC 33.1 g/dL CAL (32.0-36.0); NEUT# 3.76 thou/uL (1.82-7.42); RED BLOOD COUNT 3.8 mill/uL (4.70-6.10); RED CELL DISTRI WIDTH 12.8 % (11.5-15.5)
[2020-08-12 15:49] LABS: ALKALINE PHOSPHATASE 73 u/l (38-126); AMYLASE 43 u/l (30-110); ANION GAP 11 (6-22 (CALC)); BILIRUBIN, TOTAL 1.8 mg/dL (0.0-1.4); BUN 6 mg/dL (8-23); BUN/CREATININE RATIO 10 (12-20 (CALC)); CARBON DIOXIDE 28 mmol/l (22-30); CHLORIDE 98 mmol/l (95-108); CREATININE 0.6 mg/dL (0.7-1.3); GFR > 60 ML/MIN (>=60 (CALC)); GFR FOR AFR.AMER. > 60 ML/MIN (>=60 (CALC)); LIPASE 94 u/l (23-300); POTASSIUM 3.2 mmol/l (3.5-5.1); SGOT/AST 48 u/l (19-48); SODIUM 133 mmol/l (137-146); TOTAL PROTEIN 7.7 g/dL (6.3-8.2)
[2020-08-12 15:51] LABS: ACT PARTIAL THROMBO TIME 34.1 SECONDS (20.0-32.5); INTERNATIONAL NORMALIZED RATIO 1.4 RATIO (0.7-1.3); PROTHROMBIN TIME 13.8 SECONDS (9.0-12.5)
[2020-08-12 16:25] VITALS: BP 100/71
== END 2020-08-12 16:25 | disposition home or self-care (01) ==
LOC: ED 13:43
DX: K74.60 Unspecified cirrhosis of liver (principal); R18.8 Other ascites; J44.9 Chronic obstructive pulmonary disease, unspecified; F17.210 Nicotine dependence, cigarettes, uncomplicated

== ENCOUNTER 2020-08-13 10:19 | Emergency (ER) | payer MEDICARE ==
[~2020-08-13] VITALS: Ht 172.7 cm; Wt 80.0 kg
[~2020-08-13 10:19] MED LIST changes: +WATER PILL
[2020-08-13 17:35] VITALS: BP 154/88
== END 2020-08-13 17:35 | disposition home or self-care (01) ==
LOC: ED 10:19
PROC: 0W9G3ZZ Drainage of Peritoneal Cavity, Percutaneous Approach (ICD-10-PCS; principal; 2020-08-13)
PROC: BW40ZZZ Ultrasonography of Abdomen (ICD-10-PCS; 2020-08-13)
DX: K74.60 Unspecified cirrhosis of liver (principal); R18.8 Other ascites; F17.210 Nicotine dependence, cigarettes, uncomplicated
CPT/HCPCS: P9047

== ENCOUNTER 2020-09-03 12:01 | Emergency (ER) | payer MEDICARE ==
[~2020-09-03] VITALS: Ht 172.7 cm; Wt 69.1 kg
[2020-09-03 13:32] LABS: HEMOGLOBIN 11.3 g/dl (14.0-18.0); IMMATURE GRANULOCYTES 0.2 % (0.0-5.0); MEAN CELL VOLUME 90.9 fL CALC (80.0-100.0); MEAN CORPUSCULAR HGB 30.2 pG CALC (26.0-32.0); MEAN CORPUSCULAR HGB CONC 33.2 g/dL CAL (32.0-36.0); NEUT# 3.47 thou/uL (1.82-7.42); RED BLOOD COUNT 3.74 mill/uL (4.70-6.10); RED CELL DISTRI WIDTH 13.2 % (11.5-15.5)
[2020-09-03 13:58] LABS: INTERNATIONAL NORMALIZED RATIO 1.3 RATIO (0.7-1.3); PROTHROMBIN TIME 12.7 SECONDS (9.0-12.5)
[2020-09-03 14:01] LABS: ALBUMIN 2.9 g/dL (3.2-5.0); ALKALINE PHOSPHATASE 77 u/l (38-126); ANION GAP 11 (6-22 (CALC)); BILIRUBIN, TOTAL 1.7 mg/dL (0.0-1.4); BUN 7 mg/dL (8-23); BUN/CREATININE RATIO 10 (12-20 (CALC)); CARBON DIOXIDE 26 mmol/l (22-30); CHLORIDE 100 mmol/l (95-108); CREATININE 0.7 mg/dL (0.7-1.3); GFR > 60 ML/MIN (>=60 (CALC)); GFR FOR AFR.AMER. > 60 ML/MIN (>=60 (CALC)); LIPASE 142 u/l (23-300); POTASSIUM 3.7 mmol/l (3.5-5.1); SGOT/AST 39 u/l (19-48); SODIUM 133 mmol/l (137-146); TOTAL PROTEIN 7.2 g/dL (6.3-8.2)
[2020-09-03 14:27] VITALS: BP 144/71
== END 2020-09-03 14:34 | disposition home or self-care (01) ==
LOC: ED 12:01
PROVIDERS: Family Medicine
DX: K74.60 Unspecified cirrhosis of liver (principal); R18.8 Other ascites; F17.200 Nicotine dependence, unspecified, uncomplicated

== ENCOUNTER 2021-07-18 17:08 | Emergency (ER) | payer MEDICARE ==
[2021-07-18] VITALS (8 sets, daily range): BP systolic 80–101; BP diastolic 45–55
[~2021-07-18] VITALS: Ht 172.7 cm; Wt 75.0 kg
[2021-07-18 17:44] LABS: MEAN CORPUSCULAR HGB 31.5 pG CALC (26.0-32.0); MEAN CORPUSCULAR HGB CONC 28.6 g/dL CAL (32.0-36.0); NEUT# 13.95 thou/uL (1.82-7.42); RED BLOOD COUNT 1.65 mill/uL (4.70-6.10); RED CELL DISTRI WIDTH 15.1 % (11.5-15.5)
[2021-07-18 17:50] LABS: MEAN CELL VOLUME 110.3 fL CALC (80.0-100.0)
[2021-07-18 17:51] LABS: HEMATOCRIT 18.2 % (39.0-50.0); HEMOGLOBIN 5.2 g/dl (14.0-18.0)
[2021-07-18 18:13] LABS: ALBUMIN 2.6 g/dL (3.2-5.0)
[2021-07-18 18:21] LABS: CREATININE 2.4 mg/dL (0.7-1.3); POTASSIUM 4.7 mmol/l (3.5-5.1)
[2021-07-18 18:22] LABS: BILIRUBIN, TOTAL 3.3 mg/dL (0.0-1.4); TOTAL PROTEIN 5.5 g/dL (6.3-8.2)
[2021-07-18 18:24] LABS: MAGNESIUM 2.7 mg/dL (1.6-2.3)
[2021-07-18 19:11] LABS: URINE BILIRUBIN - DIPSTICK NEGATIVE (NEGATIVE); URINE BLOOD DIPSTICK NEGATIVE (NEGATIVE); URINE COLOR YELLOW; URINE GLUCOSE - DIPSTICK NEGATIVE (NEGATIVE); URINE KETONE 15 mg/dL (NEGATIVE); URINE LEUK ESTERASE NEGATIVE (NEGATIVE); URINE PROTEIN - DIPSTICK NEGATIVE (NEG-TRACE); URINE UROBILINOGEN - DIPSTICK 0.2 E.U./dL (0.2)
[2021-07-18 19:17] LABS: URINE NITRITE - DIPSTICK NEGATIVE (Negative)
--- NOTE | 2021-07-18 20:27 | NUR ---
PT INTUBATED WITH A 7.5 ETT AT 22 CM OF THE LIPS. ETT PLACEMENT VERIFIED BY CO2 DETECTOR, LISTENING OF BREATH SOUND AND THEN X-RAY.
== END 2021-07-18 21:00 | disposition short-term general hospital (02) ==
LOC: ED 17:08
PROVIDERS: Family Medicine
PROC: 30233N1 Transfusion of Nonautologous Red Blood Cells into Peripheral Vein, Percutaneous Approach (ICD-10-PCS; principal; 2021-07-18)
PROC: 30233N1 Transfusion of Nonautologous Red Blood Cells into Peripheral Vein, Percutaneous Approach (ICD-10-PCS; 2021-07-18)
PROC: 30233N1 Transfusion of Nonautologous Red Blood Cells into Peripheral Vein, Percutaneous Approach (ICD-10-PCS; 2021-07-18)
PROC: 30233N1 Transfusion of Nonautologous Red Blood Cells into Peripheral Vein, Percutaneous Approach (ICD-10-PCS; 2021-07-18)
PROC: 30233N1 Transfusion of Nonautologous Red Blood Cells into Peripheral Vein, Percutaneous Approach (ICD-10-PCS; 2021-07-18)
PROC: 30233N1 Transfusion of Nonautologous Red Blood Cells into Peripheral Vein, Percutaneous Approach (ICD-10-PCS; 2021-07-18)
PROC: 0T9B70Z Drainage of Bladder with Drainage Device, Via Natural or Artificial Opening (ICD-10-PCS; 2021-07-18)
PROC: 05HM33Z Insertion of Infusion Device into Right Internal Jugular Vein, Percutaneous Approach (ICD-10-PCS; 2021-07-18)
PROC: 0BH17EZ Insertion of Endotracheal Airway into Trachea, Via Natural or Artificial Opening (ICD-10-PCS; 2021-07-18)
DX: A41.9 Sepsis, unspecified organism (principal); R65.21 Severe sepsis with septic shock; D64.9 Anemia, unspecified; K92.0 Hematemesis; M62.82 Rhabdomyolysis; T68.XXXA Hypothermia, initial encounter; K74.60 Unspecified cirrhosis of liver; F17.200 Nicotine dependence, unspecified, uncomplicated; Z20.822 Contact with and (suspected) exposure to COVID-19
CPT/HCPCS: J0692; J2354; P9016; S0164